=== PATIENT | female | born 1960 | race Caucasian/White ===

== ENCOUNTER 2017-08-28 05:56 | Day surgery (SDC) | payer BC ==
[2017-08-18 15:38] VITALS: BMI 30.5
[~2017-08-28 05:56] MED LIST: Cyclopentolate 1% Opth Drop 2 ML BOT FS SCH; Fluorouracil 100 MG, Enoxaparin Sodium 25 MG in Ophthalmic Irrigation Solution 500 ML FS SCH; Fluorouracil 100 MG, Enoxaparin Sodium 25 MG in Ophthalmic Irrigation Solution 500 ML IVPB SCH; Phenylephrine 2.5% Ophth Soln 5 ML BOT FS SCH
[2017-08-28] MEDS ORDERED: Fentanyl 100 MCG/2 ML VIAL ONE (06:12)
[2017-08-28] MEDS ORDERED: Diprivan 20 ML ONE (06:12)
[2017-08-28] MEDS ORDERED: Midazolam HCl 2 mg/2 ml Vial ONE (06:12)
[2017-08-28] MEDS ORDERED: Cyclopentolate 1% Opth Drop 2 ML BOT ONE (06:16)
[2017-08-28] MEDS ORDERED: Phenylephrine 2.5% Ophth Soln 5 ML BOT ONE (06:17)
[2017-08-28] MEDS ORDERED: Propofol 200 MG/20 ML VIAL ONE (07:03)
[2017-08-28] MEDS ORDERED: Lidocaine 2% MPF 10 ML AMP (For Epidural Use) ONE (07:03)
--- NOTE | 2017-08-28 07:51 | OP ---
DATE OF PROCEDURE: 08/28/2017 PREOPERATIVE DIAGNOSIS: Epiretinal membrane, right eye. POSTOPERATIVE DIAGNOSIS: Epiretinal membrane, right eye. PROCEDURE: Pars plana vitrectomy and membrane peel, right eye. SURGEON: Dr. Jeff Hansen ANESTHESIA: Local with monitored anesthesia care. COMPLICATIONS: None. PROCEDURE IN DETAIL: The patient was identified in the preoperative holding area. Appropriate info rmed consent for the planned surgical procedure on the right eye had been obtained. The patient was transported to the operative suite. Appropriate cardiopulmonary monitoring was established. Local anesthesia was obtained using retrobulbar and modified Van Lint lid block using 50/50 mixture of 4% lidocaine and 0.75% bupivacaine. The patient was prepped and draped in the usual sterile manner fo r ophthalmic surgery on the right eye. Lid speculum was placed in the right eye. The 25-gauge troc ars were placed in conjunctiva and sclera supratemporally, inferotemporally, and supranasally. Infu aurelio line was placed inferotemporally. Light pipe and vitreous cutter were inserted into the eye. Core of vitrectomy was performed. Areas of fibrous material were noted on the retinal surface. The se were grasped with end-gripping forceps and peeled cleanly off the retinal surface. The superior temporal preexistent hole was identified. This was treated circumferentially with endolaser and pro phylactic laser placed behind the sclerotomy sites. No holes, breaks or tears were identified. Tro cars were removed and the eye was noted to retain pressure well. Retrobulbar Kenalog and subconjunc tival Ancef were placed. Atropine and antibiotic ointment were placed, and the eye was patched and shielded. The patient was taken to the postoperative recovery unit in good condition having suffere d no immediate perioperative complications. DISCHARGE INSTRUCTIONS: The patient was instructed to keep patch and shield on, avoid lifting or be nding, follow up in the morning with Dr. Hansen.
== END 2017-08-28 08:30 | disposition home or self-care (01) ==
LOC: SDC 05:56
PROVIDERS: ATTEND Ophthalmology Retina Specialist
PROC: 08NE3ZZ Release Right Retina, Percutaneous Approach (ICD-10-PCS; principal; 2017-08-28)
PROC: 08T43ZZ Resection of Right Vitreous, Percutaneous Approach (ICD-10-PCS; principal; 2017-08-28)
DX: H35.371 Puckering of macula, right eye (principal); Z88.5 Allergy status to narcotic agent
CPT/HCPCS: J1650; J2001; J2250; J2704; J3010; J9190